=== PATIENT | female | born 1975 | race Caucasian/White ===

== ENCOUNTER 2020-02-27 06:38 | Day surgery (SDC) | payer OTHER ==
[2020-02-26 08:56] LABS: BLOOD UREA NITROGEN,BUN 8 mg/dL (7.0-18.0); CARBON DIOXIDE,CO2 27.6 mmol/L (21.0-32.0); CHLORIDE,CL 103 mmol/L (98-107); GLUCOSE RANDOM 138 mg/dL (74-106); POTASSIUM,K 3.9 mmol/L (3.5-5.1); SODIUM,NA 138 mmol/L (136-145)
[2020-02-27] MEDS ORDERED: Lidocaine 2% 5 ML SDV ONE (07:05)
[2020-02-27] MEDS ORDERED: Rocuronium 100 MG/10 ML Syringe ONE ×2 (07:05→10:04)
[2020-02-27] MEDS ORDERED: Propofol 200 MG/20 ML SDV ONE ×4 (07:05→12:22)
[2020-02-27] MEDS ORDERED: Ondansetron 4 MG/2 ML SDV ONE (07:05)
[2020-02-27] MEDS ORDERED: fentaNYL 250 MCG/5 ML SDV ONE (07:05)
[2020-02-27] MEDS ORDERED: Midazolam 1 MG/ML 2 ML SDV ONE (07:06)
[2020-02-27] MEDS ORDERED: Ketorolac 30 MG/ML SDV ONE (07:06)
[2020-02-27] MEDS ORDERED: Ketamine 500 mg/10 ML MDV ONE (07:07)
[2020-02-27] MEDS ORDERED: Scopolamine 1.5 MG Transdermal Patch TOP ONE (07:23)
[2020-02-27] MEDS ORDERED: Vasopressin 20 Units/1 ML MDV ONE (07:32)
[2020-02-27] MEDS ORDERED: Methylene Blue 50 MG/10 ML Ampule ONE (07:32)
[2020-02-27] MEDS ORDERED: Bupivacaine 0.25% 10 ML SDV ONE (07:32)
[2020-02-27] MEDS ORDERED: Fluorescein 5 ML Vial ONE (07:32)
[2020-02-27] MEDS: Lactated Ringers 1,000 ML IV SCH ×2 (07:34→14:26)
--- NOTE | 2020-02-27 07:35 | PCM.PREANE ---
Preanesthetic Assessment - Anesthesia/Transfusion/Family Hx Anesthesia History: Prior Anesthesia Without Reaction Family History of Anesthesia Reaction: No Transfusion History: No Prior Transfusion(s) - Review of Systems General: No Symptoms Pulmonary: No Symptoms Cardiovascular: No Symptoms Gastrointestinal: No Symptoms Neurological: No Symptoms Other: Reports: None - Physical Assessment NPO Status Date: 02/26/20 Vital Signs: Last Vital Signs Temp 97.2 F 02/27/20 06:45 Pulse 77 02/27/20 06:45 Resp 18 02/27/20 06:45 BP 158/70 H 02/27/20 06:45 Pulse Ox 98 02/27/20 06:45 Height: 5 ft 4 in Weight: 95.254 kg ASA Class: 2 Mental Status: Alert & Oriented x3 Airway Class: Mallampati = 2 Dentition: Reports: Normal Dentition ROM/Head Extension: Full Lungs: Clear to Auscultation, Normal Respiratory Effort Cardiovascular: Regular Rate, Regular Rhythm - Lab Values: Laboratory Last Values WBC 8.67 K/uL (4.0-11.0) 02/26/20 08:21 RBC 4.85 M/uL (4.30-5.90) 02/26/20 08:21 Hgb 13.2 g/dL (12.0-16.0) 02/26/20 08:21 Hct 40.6 % (36.0-46.0) 02/26/20 08:21 MCV 83.7 fL (80.0-98.0) 02/26/20 08:21 MCH 27.2 pg (27.0-32.0) 02/26/20 08:21 MCHC 32.5 g/dL (31.0-37.0) 02/26/20 08:21 RDW Std Deviation 45.9 fl (28.0-62.0) 02/26/20 08:21 RDW Coeff of Wilder 15 % (11.0-15.0) 02/26/20 08:21 Plt Count 317 K/uL (150-400) 02/26/20 08:21 MPV 9.40 fL (7.40-12.00) 02/26/20 08:21 Nucleated RBC % 0.0 /100WBC 02/26/20 08:21 Nucleated RBCs # 0 K/uL 02/26/20 08:21 Sodium 138 mmol/L (136-145) 02/26/20 08:21 Potassium 3.9 mmol/L (3.5-5.1) 02/26/20 08:21 Chloride 103 mmol/L (98-107) 02/26/20 08:21 Carbon Dioxide 27.6 mmol/L (21.0-32.0) 02/26/20 08:21 BUN 8 mg/dL (7.0-18.0) 02/26/20 08:21 Creatinine 0.7 mg/dL (0.6-1.0) 02/26/20 08:21 Est Cr Clr Drug Dosing 86.72 mL/min 02/26/20 08:21 Estimated GFR (MDRD) > 60.0 ml/min 02/26/20 08:21 Glucose 138 mg/dL (74-106) H 02/26/20 08:21 Calcium 8.7 mg/dL (8.5-10.1) 02/26/20 08:21 HCG, Qual NEGATIVE (NEG) 02/26/20 08:21 SARS Virus RNA (PCR) NEGATIVE (NEGATIVE) 02/26/20 08:36 Blood Type O POSITIVE 02/26/20 08:26 Antibody Screen NEGATIVE 02/26/20 08:26 - Allergies Allergies/Adverse Reactions: Allergies Allergy/AdvReac Type Severity Reaction Status Date / Time MSG Allergy Facial Uncoded 02/23/20 08:57 Swelling - Blood Blood Available: No - Anesthesia Plan Pre-Op Medication Ordered: Other (trans derm scop ordered by surgeon) - Acknowledgements Anesthesia Type Planned: General Anesthesia Pt an Appropriate Candidate for the Planned Anesthesia: Yes Alternatives and Risks of Anesthesia Discussed w Pt/Guardian: Yes Pt/Guardian Understands and Agrees with Anesthesia Plan: Yes Additional Comments: PMH: [place] wearing hearing aids, migraine PLAN: get PreAnesthesia Questionnaire HEENT History: Reports: Other (See Below) Other HEENT History: wears glasses, hearing aids Cardiovascular History: Reports: Heart Murmur, Other (See Below) Other Cardiovascular History: mitral valve prolapse Respiratory History: Reports: None Gastrointestinal History: Reports: GERD Genitourinary History: Reports: None WINDOW TINTER History: Reports: Musculoskeletal History: Reports: Fracture Other Musculoskeletal History: bilateral wrists Neurological History: Reports: Migraines, Other (See Below) Other Neuro History: hx of motion sickness Psychiatric History: Reports: None Endocrine/Metabolic History: Reports: Obesity/BMI 30+ Hematologic History: Reports: Anemia Immunologic History: Reports: None Oncologic (Cancer) History: Reports: None Dermatologic History: Reports: None - Past Surgical History Head Surgeries/Procedures: Reports: None HEENT Surgical History: Reports: Oral Surgery Cardiovascular Surgical History: Reports: None Respiratory Surgical History: Reports: None GI Surgical History: Reports: Appendectomy Female Surgical History: Reports: Section, Tubal Ligation Endocrine Surgical History: Reports: None Neurological Surgical History: Reports: None Musculoskeletal Surgical History: Reports: Arthroscopic Knee, Other (See Below) Other Musculoskeletal Surgeries/Procedures:: tendon repair left wrist, rt knee arthroscopy Oncologic Surgical History: Reports: None Dermatological Surgical History: Reports: None - SUBSTANCE USE Smoking Status *Q: Never Smoker Recreational Drug Use History: No - HOME MEDS Home Medications: Home Meds Iron 65 mg PO DAILY 04/06/16 [History] Fluticasone Propionate [Flonase] 2 spray NASBOTH DAILY 02/23/20 [History] Omeprazole 20 mg PO DAILY 02/23/20 [History] - CURRENT (IN HOUSE) MEDS Current Meds: Current Medications Lactated Ringer's (Ringers, Lactated) 1,000 mls @ 100 mls/hr IV ASDIRECTED MAURICIO Discontinued Medications Fentanyl (Sublimaze) Confirm Administered Dose 250 mcg .ROUTE .STK-MED ONE Stop: 02/27/20 07:06 Ketamine HCl (Ketalar) Confirm Administered Dose 500 mg .ROUTE .STK-MED ONE Stop: 02/27/20 07:08 Ketorolac Tromethamine (Toradol) Confirm Administered Dose 30 mg .ROUTE .STK- MED ONE Stop: 02/27/20 07:07 Lidocaine (Xylocaine-Mpf 2%) Confirm Administered Dose 5 ml .ROUTE .STK-MED ONE Stop: 02/27/20 07:06 Midazolam HCl (Versed 1 Mg/Ml) Confirm Administered Dose 2 mg .ROUTE .STK-MED ONE Stop: 02/27/20 07:07 Ondansetron HCl (Zofran) Confirm Administered Dose 4 mg .ROUTE .STK-MED ONE Stop: 02/27/20 07:06 Propofol (Diprivan 20 Ml) Confirm Administered Dose 400 mg .ROUTE .STK-MED ONE Stop: 02/27/20 07:06 Rocuronium [place] (Zemuron) Confirm Administered Dose 100 mg .ROUTE .STK-MED ONE Stop: 02/27/20 07:06 Scopolamine (Transderm-Scop) 1.5 mg TOP ONETIME ONE Stop: 02/27/20 07:24
[2020-02-27] MEDS ORDERED: ceFAZolin 2 GM in Premix Bag 1 BAG IV ONE (07:43)
[2020-02-27] MEDS ORDERED: Sodium Chloride 0.9% 10 ML SDV IV PRN (07:43)
[2020-02-27] MEDS ORDERED: Sodium Chloride 0.9% 2.5 ML Syringe FLUSH PRN (07:43)
[2020-02-27] MEDS ORDERED: Sodium Chloride 0.9% 10 ML Syringe FLUSH PRN (07:43)
[2020-02-27] MEDS ORDERED: ceFAZolin/Dextrose,Iso-Osmotic 2 GM/50 ML Duplex Bag IV ONE (08:09)
[2020-02-27] MEDS ORDERED: ePHEDrine 50 MG/ML SDV ONE (08:45)
[2020-02-27] MEDS ORDERED: fentaNYL 100 MCG/2 ML SDV IVPUSH PRN (09:01)
[2020-02-27] MEDS ORDERED: Furosemide 40 MG/4 ML VIAL ONE (09:37)
[2020-02-27] MEDS ORDERED: fentaNYL 100 MCG/2 ML SDV ONE ×2 (09:43→10:32)
--- NOTE | 2020-02-27 13:10 | PCM.POSTAN ---
POST ANESTHESIA ASSESSMENT - MENTAL STATUS Mental Status: Alert, Oriented - VITAL SIGNS Vital Signs: Last Vital Signs Temp 97.6 F 02/27/20 12:55 Pulse 85 02/27/20 13:05 Resp 20 02/27/20 13:05 BP 111/59 L 02/27/20 13:05 Pulse Ox 100 02/27/20 13:05 - RESPIRATORY Respiratory Status: Respiratory Rate WNL, Airway Patent, O2 Saturation Stable - CARDIOVASCULAR CV Status: Pulse Rate WNL, Blood Pressure Stable - GASTROINTESTINAL GI Status: No Symptoms - POST OP HYDRATION Hydration Status: Adequate & Stable
[2020-02-27] MEDS ORDERED: Promethazine 25 MG/ML SDV IM PRN (13:14)
[2020-02-27] MEDS ORDERED: oxyCODONE 5 MG Tab PO PRN (13:14)
[2020-02-27] MEDS ORDERED: Ketorolac 30 MG/ML SDV IVPUSH ONE (13:14)
[2020-02-27] MEDS ORDERED: Morphine 4 MG/ML Syringe IVPUSH PRN (13:14)
[2020-02-27] MEDS ORDERED: Ketorolac 30 MG/ML SDV IVPUSH PRN (13:14)
[2020-02-27] MEDS ORDERED: Ondansetron 4 MG/2 ML SDV IVPUSH PRN (13:14)
--- NOTE | 2020-02-27 13:21 | PCM.OPNOTE ---
- General Post-Op/Procedure Note Date of Surgery/Procedure: 02/27/20 Operative Procedure(s): TLH/BS Findings: EUA shows 10 week sized uterus Dense adhesion of bladder to anterior uterine wall fallopian tube with filshie clip Minimal endometriotic deposits noted left ovarian fossa Pre Op Diagnosis: 44yo with P5 with Abnormal uterine bleeding Post-Op Diagnosis: Abnormal Uterine bleeding. Endometriotic deposit - minimal Anesthesia Technique: General ET Tube Primary Surgeon: Jayla Villalta Secondary Surgeon: Carri Delaney Pathology: Uterus , tube with fallope ring and Peritoneal cyst Fluid Replacement, Intraop: 2,700 Output, Urine Amount: 175 EBL in mLs: 100 Complications: None Condition: Good
[2020-02-27] MEDS: Metoclopramide 10 MG/2 ML SDV IVPUSH SCH ×2 (14:25→21:55)
[2020-02-27] MEDS: Acetaminophen 325 MG Tab PO SCH ×3 (14:51→23:18)
[2020-02-28] MEDS: Lactated Ringers 1,000 ML IV SCH (01:00)
[2020-02-28] MEDS: Acetaminophen 325 MG Tab PO SCH ×2 (03:07→06:54)
[2020-02-28 06:25] LABS: BLOOD UREA NITROGEN,BUN 10 mg/dL (7.0-18.0); CARBON DIOXIDE,CO2 26.6 mmol/L (21.0-32.0); CHLORIDE,CL 104 mmol/L (98-107); GLUCOSE RANDOM 117 mg/dL (74-106); POTASSIUM,K 4.2 mmol/L (3.5-5.1); SODIUM,NA 140 mmol/L (136-145)
[2020-02-28] MEDS: Metoclopramide 10 MG/2 ML SDV IVPUSH SCH (06:54)
--- NOTE | 2020-02-28 07:11 | PCM48HPAN ---
Post Anesthesia Note - EVALUATION WITHIN 48HRS OF ANESTHETIC Vital Signs in Normal Range: Yes Patient Participated in Evaluation: Yes Respiratory Function Stable: Yes Airway Patent: Yes Cardiovascular Function Stable: Yes Hydration Status Stable: Yes Pain Control Satisfactory: Yes Nausea and Vomiting Control Satisfactory: Yes Mental Status Recovered: Yes Vital Signs: Last Vital Signs Temp 37.4 C 02/28/20 03:08 Pulse 93 02/28/20 03:08 Resp 14 02/28/20 03:08 BP 125/55 L 02/28/20 03:08 Pulse Ox 95 02/28/20 03:08
[2020-02-28] MEDS ORDERED: ceFAZolin 2 GM in Premix Bag 1 BAG IV ONE (09:06)
--- NOTE | 2020-02-28 09:09 | PCM.SURGPN ---
- General Info Date of Service: 02/28/20 POD#: 1 Post-Op Diagnosis: AUB Functional Status: Reports: Pain Controlled, Tolerating Diet, Ambulating, Urinating - Review of Systems General: Reports: No Symptoms HEENT: Reports: No Symptoms Pulmonary: Reports: No Symptoms Cardiovascular: Reports: No Symptoms Gastrointestinal: Reports: No Symptoms Genitourinary: Reports: No Symptoms Musculoskeletal: Reports: No Symptoms Skin: Reports: No Symptoms Neurological: Reports: No Symptoms Psychiatric: Reports: No Symptoms - Patient Data Vitals - Most Recent: Last Vital Signs Temp 37.4 C 02/28/20 03:08 Pulse 93 02/28/20 03:08 Resp 14 02/28/20 03:08 BP 125/55 L 02/28/20 03:08 Pulse Ox 95 02/28/20 03:08 Weight - Most Recent: 95.254 kg I&O - Last 24 Hours: Intake & Output 02/27/20 02/28/20 02/28/20 22:59 06:59 14:59 Intake Total 2700 300 Output Total 675 1400 Balance 2024 -1099 Lab Results Last 24 Hrs: Laboratory Results - last 24 hr 02/28/20 02/28/20 Range/Units 05:50 05:50 WBC 17.03 H (4.0-11.0) K/uL RBC 4.14 L (4.30-5.90) M/uL Hgb 11.1 L (12.0-16.0) g/dL Hct 35.1 L (36.0-46.0) % MCV 84.8 (80.0-98.0) fL MCH 26.8 L (27.0-32.0) pg MCHC 31.6 (31.0-37.0) g/dL RDW Std Deviation 47.4 (28.0-62.0) fl RDW Coeff of Wilder 15 (11.0-15.0) % Plt Count 340 (150-400) K/uL MPV 9.70 (7.40-12.00) fL Neut % (Auto) 80.3 H (48.0-80.0) % Lymph % (Auto) 11.6 L (16.0-40.0) % Dent % (Auto) 7.9 (0.0-15.0) % Eos % (Auto) 0.1 (0.0-7.0) % Baso % (Auto) 0.1 (0.0-1.5) % Neut # (Auto) 13.7 H (1.4-5.7) K/uL Lymph # (Auto) 2.0 (0.6-2.4) K/uL Dent # (Auto) 1.3 H (0.0-0.8) K/uL Eos # (Auto) 0.0 (0.0-0.7) K/uL Baso # (Auto) 0.0 (0.0-0.1) K/uL Nucleated RBC % 0.0 /100WBC Nucleated RBCs # 0 K/uL Sodium 140 (136-145) mmol/L Potassium 4.2 (3.5-5.1) mmol/L Chloride 104 (98-107) mmol/L Carbon Dioxide 26.6 (21.0-32.0) mmol/L BUN 10 (7.0-18.0) mg/dL Creatinine 0.8 (0.6-1.0) mg/dL Est Cr Clr Drug Dosing 75.88 mL/min Estimated GFR (MDRD) > 60.0 ml/min Glucose 117 H (74-106) mg/dL Calcium 8.1 L (8.5-10.1) mg/dL Med Orders - Current: Current Medications Acetaminophen (Tylenol) 650 mg PO Q4H [facility] Last Admin: 02/28/20 06:54 Dose: 650 mg Lactated Ringer's (Ringers, Lactated) 1,000 mls @ 100 mls/hr IV ASDIRECTED [facility] Last Admin: 02/28/20 01:00 Dose: 100 mls/hr Ketorolac Tromethamine (Toradol) 30 mg IVPUSH Q6H PRN PRN Reason: Pain (severe 7-10) Stop: 03/03/20 13:14 Last Admin: 02/27/20 23:19 Dose: 30 mg Metoclopramide HCl (Reglan) 10 mg IVPUSH Q8H [facility] Last Admin: 02/28/20 06:54 Dose: 10 mg Morphine Sulfate (Morphine) 4 mg IVPUSH Q2H PRN PRN Reason: Pain (severe 7-10) Last Admin: 02/27/20 15:01 Dose: 4 mg Ondansetron HCl (Zofran) 4 mg IVPUSH Q6H PRN PRN Reason: Nausea/Vomiting Oxycodone HCl (Oxycodone) 5 mg PO Q4H PRN PRN Reason: Pain (moderate 4-6) Last Admin: 02/27/20 17:06 Dose: 5 mg Promethazine HCl (Phenergan) 25 mg IM Q6H PRN PRN Reason: Nausea/Vomiting Sodium Chloride (Saline Flush) 2.5 ml FLUSH ASDIRECTED PRN PRN Reason: Keep Vein Open Discontinued Medications Bupivacaine HCl (Sensorcaine-Mpf 0.25%) Confirm Administered Dose 20 ml .ROUTE .STK-MED ONE Stop: 02/27/20 07:33 Cefazolin Sodium/Dextrose (Ancef) Confirm Administered Dose 2 gm IV .STK-MED ONE Stop: 02/27/20 08:10 Ephedrine Sulfate (Ephedrine Sulfate) Confirm Administered Dose 50 mg .ROUTE .STK-MED ONE Stop: 02/27/20 08:46 Fentanyl (Sublimaze) Confirm Administered Dose 250 mcg .ROUTE .STK-MED ONE Stop: 02/27/20 07:06 Fentanyl (Sublimaze) 50 mcg IVPUSH Q5M PRN PRN Reason: Pain (severe 7-10) Stop: 02/28/20 09:02 Fentanyl (Sublimaze) Confirm Administered Dose 100 mcg .ROUTE .STK-MED ONE Stop: 02/27/20 09:44 Fentanyl (Sublimaze) Confirm Administered Dose 100 mcg .ROUTE .STK-MED ONE Stop: 02/27/20 10:33 Fluorescein Sodium (Ak-Fluor) Confirm Administered Dose 5 ml .ROUTE .STK-MED ONE Stop: 02/27/20 07:33 Furosemide (Lasix) Confirm Administered Dose 40 mg .ROUTE .STK-MED ONE Stop: 02/27/20 09:38 Cefazolin Sodium/Dextrose 2 gm (/ Premix) 50 mls @ 100 mls/hr IV ONETIME ONE Stop: 02/27/20 08:12 Last Admin: 02/27/20 19:56 Dose: Not Given Ketamine HCl (Ketalar) Confirm Administered Dose 500 mg .ROUTE .STK-MED ONE Stop: 02/27/20 07:08 Ketorolac Tromethamine (Toradol) Confirm Administered Dose 30 mg .ROUTE .STK- MED ONE Stop: 02/27/20 07:07 Ketorolac Tromethamine (Toradol) 30 mg IVPUSH ONETIME ONE Stop: 02/27/20 13:15 Last Admin: 02/27/20 13:24 Dose: 30 mg Lidocaine (Xylocaine-Mpf 2%) Confirm Administered Dose 5 ml .ROUTE .STK-MED ONE Stop: 02/27/20 07:06 Methylene Blue (Provayblue) Confirm Administered Dose 50 mg .ROUTE .STK-MED ONE Stop: 02/27/20 07:33 Midazolam HCl (Versed 1 Mg/Ml) Confirm Administered Dose 2 mg .ROUTE .STK-MED ONE Stop: 02/27/20 07:07 Ondansetron HCl (Zofran) Confirm Administered Dose 4 mg .ROUTE .STK-MED ONE Stop: 02/27/20 07:06 Propofol (Diprivan 20 Ml) Confirm Administered Dose 400 mg .ROUTE .STK-MED ONE Stop: 02/27/20 07:06 Propofol (Diprivan 20 Ml) Confirm Administered Dose 200 mg .ROUTE .STK-MED ONE Stop: 02/27/20 09:25 Propofol (Diprivan 20 Ml) Confirm Administered Dose 200 mg .ROUTE .STK-MED ONE Stop: 02/27/20 10:32 Propofol (Diprivan 20 Ml) Confirm Administered Dose 200 mg .ROUTE .STK-MED ONE Stop: 02/27/20 12:23 Rocuronium [place] (Zemuron) Confirm Administered Dose 100 mg .ROUTE .STK-MED ONE Stop: 02/27/20 07:06 Rocuronium [place] (Zemuron) Confirm Administered Dose 100 mg .ROUTE .STK-MED ONE Stop: 02/27/20 10:05 Scopolamine (Transderm-Scop) 1.5 mg TOP ONETIME ONE Stop: 02/27/20 07:24 Last Admin: 02/27/20 07:35 Dose: 1.5 mg Sodium Chloride (Saline Flush) 10 ml FLUSH ASDIRECTED PRN PRN Reason: Keep Vein Open Sodium Chloride (Normal Saline) 10 ml IV ASDIRECTED PRN PRN Reason: IV Use Vasopressin (Vasopressin) Confirm Administered Dose 20 units .ROUTE .STK-MED ONE Stop: 02/27/20 07:33 - Exam Wound/Incisions: Healing Well General: Alert HEENT: Pupils Equal Neck: Supple Lungs: Clear to Auscultation, Normal Respiratory Effort Cardiovascular: Regular Rate, Regular Rhythm GI/Abdominal Exam: Normal Bowel Sounds Extremities: Normal Inspection Neurological: No New Focal Deficit Psy/Mental Status: Alert Sepsis Event Note - Evaluation Sepsis Screening Result: No Definite Risk - Focused Exam Vital Signs: Vital Signs Temp Pulse Resp BP Pulse Ox 02/28/20 03:08 37.4 C 93 14 125/55 L 95 02/27/20 23:21 37.6 C 100 14 118/58 L 92 L Date Exam was Performed: 02/28/20 Time Exam was Performed: 09:05 - Problem List & Annotations (1) S/P hysterectomy SNOMED Code(s): 957017950, 687143176, 066393431 Code(s): Z90.710 - ACQUIRED ABSENCE OF BOTH CERVIX AND UTERUS Status: Acute Current Visit: Yes - Problem List Review Problem List Initiated/Reviewed/Updated: Yes - My Orders Last 24 Hours: Active Orders 24 hr Category Date Time Status Patient Status [ADT] Routine ADT 02/27/20 13:14 Active Antiembolic Devices [RC] PER UNIT ROUTINE Care 02/27/20 13:14 Active Notify Provider Intake and Out [RC] ASDIRECTED Care 02/27/20 13:14 Active Notify Provider Vital Signs [RC] ASDIRECTED Care 02/27/20 13:14 Active Oxygen Therapy [RC] ASDIRECTED Care 02/27/20 13:14 Active RT Incentive Spirometry [RC] Q2HWA Care 02/27/20 13:14 Active Up With Assistance [RC] PER UNIT ROUTINE Care 02/27/20 13:14 Active Up ad Adriana [RC] PER UNIT ROUTINE Care 02/27/20 13:14 Active Vital Signs [RC] PER UNIT ROUTINE Care 02/27/20 13:14 Active Regular Diet [DIET] Diet 02/27/20 Dinner Active Acetaminophen [Tylenol] Med 02/27/20 15:00 Active 650 mg PO Q4H Ketorolac [Toradol] Med 02/27/20 13:14 Active 30 mg IVPUSH Q6H PRN Metoclopramide [Reglan] Med 02/27/20 13:30 Active 10 mg IVPUSH Q8H Morphine Med 02/27/20 13:14 Active 4 mg IVPUSH Q2H PRN Ondansetron [Zofran] Med 02/27/20 13:14 Active 4 mg IVPUSH Q6H PRN Promethazine [Phenergan] Med 02/27/20 13:14 Active 25 mg IM Q6H PRN oxyCODONE Med 02/27/20 13:14 Active 5 mg PO Q4H PRN Peripheral IV Discontinue [OM.PC] Routine Oth 02/27/20 13:14 Ordered Sequential Compression Device [OM.PC] Per Unit Routine Oth 02/27/20 13:14 Ordered Resuscitation Status Routine Resus Stat 02/27/20 13:14 Ordered Medication Orders Acetaminophen (Tylenol) 650 mg PO Q4H [facility] Last Admin: 02/28/20 06:54 Dose: 650 mg Admin: 02/28/20 03:07 Dose: 650 mg Admin: 02/27/20 23:18 Dose: 650 mg Admin: 02/27/20 18:27 Dose: 650 mg Admin: 02/27/20 14:51 Dose: 650 mg Lactated Ringer's (Ringers, Lactated) 1,000 mls @ 100 mls/hr IV ASDIRECTED [facility] Last Admin: 02/28/20 01:00 Dose: 100 mls/hr Infusion: 02/28/20 00:26 Dose: 100 mls/hr Admin: 02/27/20 14:26 Dose: 100 mls/hr Infusion: 02/27/20 14:26 Dose: 100 mls/hr Admin: 02/27/20 07:34 Dose: 100 mls/hr Ketorolac Tromethamine (Toradol) 30 mg IVPUSH Q6H PRN PRN Reason: Pain (severe 7-10) Stop: 03/03/20 13:14 Last Admin: 02/27/20 23:19 Dose: 30 mg Metoclopramide HCl (Reglan) 10 mg IVPUSH Q8H [facility] Last Admin: 02/28/20 06:54 Dose: 10 mg Admin: 02/27/20 21:55 Dose: 10 mg Admin: 02/27/20 14:25 Dose: 10 mg Morphine Sulfate (Morphine) 4 mg IVPUSH Q2H PRN PRN Reason: Pain (severe 7-10) Last Admin: 02/27/20 15:01 Dose: 4 mg Ondansetron HCl (Zofran) 4 mg IVPUSH Q6H PRN PRN Reason: Nausea/Vomiting Oxycodone HCl (Oxycodone) 5 mg PO Q4H PRN PRN Reason: Pain (moderate 4-6) Last Admin: 02/27/20 17:06 Dose: 5 mg Promethazine HCl (Phenergan) 25 mg IM Q6H PRN PRN Reason: Nausea/Vomiting Sodium Chloride (Saline Flush) 2.5 ml FLUSH ASDIRECTED PRN PRN Reason: Keep Vein Open - Assessment Assessment (Free Text/Narrative):: 44yo s/p TLH/BS for AUB She has good pain control denies any complains Voiding , tolerating regular diet She has met all post op goals - Plan Plan (Free Text/Narrative):: Discharge home Post op precautions
[2020-02-28 09:55] VITALS: BP 119/52; PULSE 74
--- NOTE | 2020-03-01 08:13 | OR ---
SURGEON: YOANDY PARKER DATE OF PROCEDURE: 02/27/2020 PREOPERATIVE DIAGNOSIS: Abnormal uterine bleeding. POSTOPERATIVE DIAGNOSIS: Abnormal uterine bleeding. PROCEDURES: Total laparoscopic hysterectomy, bilateral salpingectomy Cytoscopy ESTIMATED BLOOD LOSS: 100 mL. IV FLUIDS: 2700. URINE OUTPUT: 175. PATHOLOGY: Uterus, tubes, and peritoneal cyst. COMPLICATION: None. PROCEDURES: Total laparoscopic hysterectomy, bilateral salpingectomy, cystoscopy, removal of peritoneal cyst, and lysis of adhesions. FINDINGS: Normal sized anteverted uterus , very dense bladder adhesions to the anterior vaginal wall Normal tube and ovaries . Cystoscopy showed intact bladder and bilateral ureteral jets. BRIEF HISTORY: She is a 44-year-old, previous x3, and x2, was seen for abnormal uterine bleeding. She had ultrasound done which showed a normal-sized uterus. Biopsy showed a normal endometrium, negative benign proliferative endometrium. The patient declined conservative management, and she desired definitive management with hysterectomy. She was explained the risks, benefits, and alternatives, and she decided to proceed. DESCRIPTION OF PROCEDURE: The patient was taken to the operating room where general anesthesia was performed without difficulty. She was prepared and draped in the dorsolithotomy position with Lakhwinder stirrups. A Beltran catheter was placed. The speculum was used to expose the cervix. The anterior lip of cervix was grasped and the cervix was sized with 3.5 Advincula asp net developer. The cervix was dilated to accommodate the Advincula asp net developer. Uterus was sounded to about 10 cm. The Advincula was placed without difficulty. Attention was turned to the abdomen. A supraumbilical incision was made 5 mm after injection of 0.25% Marcaine. The abdomen was entered via direct entry. Entry was confirmed with low intraabdominal pressure of 5 mmHg. CO2 pneumoperitoneum was obtained to 15 mmHg. The patient was placed in Trendelenburg position. The right and the left lower quadrant ports were placed 2 fingerbreadths superior and medial to the anterior and superior iliac spine. One of the ureters was observed that was on the right side. The colon was retracted out of the posterior cul-de-sac. The right tube was grasped by the physical therapy assistant instructor, and with the aid of the LigaSure device, this was sequentially coagulated and cut to separate it from the ovary and pelvic peritoneum and ligament. However, the patient had then severely dense bladder adhesions to the anterior uterus, which with the aid of hydrodissection and careful dissection and fine dissection through the retroperitoneum, the bladder was off the lower uterine segment. Also, the left tube was all the way to the cornua of the uterus, and the ovarian ligament was detached from the body of the uterus on the right and on the left side. After careful dissection of the bladder off of the lower uterine segment, the uterine vessels were then coagulated, cut on both sides. Then, a circumferential incision was made with Harmonic around the cup. The uterus was removed from the vagina. Then, Stratafix 0 suture was passed through the vagina and was then used to close the cup in 2 layers, incorporating the uterosacral ligament. After closing the cup, it was checked to be intact, to make sure there was no defect in the suture line, which was confirmed. The cuff was then inspected with irrigation. No bleeding was noted. Then, under low pressure was also inspected again, no bleeding was noted. Then, the trocars were removed. The needle was removed from one of the ports without any difficulty, the trocars were removed without any difficulty, and the incision was closed with 4-0 Monocryl. The cystoscopy was also performed, after fluorescein was injected. The bladder was noted to be intact . The bilateral ureteral jets were noted. The patient tolerated the procedure well and was taken to recovery room in stable condition. PETER HRERON /[id number] ENRIQUE
== END 2020-02-28 10:55 | disposition home or self-care (01) ==
LOC: MW.SDS 06:38 → MW.MS 13:20 → MW.SDS 02-28 10:55
PROVIDERS: ATTEND Obstetrics & Gynecology
DX: D25.1 Intramural leiomyoma of uterus (principal); I05.9 Rheumatic mitral valve disease, unspecified; N88.8 Other specified noninflammatory disorders of cervix uteri; N73.6 Female pelvic peritoneal adhesions (postinfective); K66.8 Other specified disorders of peritoneum; E66.9 Obesity, unspecified; K21.9 Gastro-esophageal reflux disease without esophagitis; Z68.36 Body mass index [BMI] 36.0-36.9, adult; Z01.812 Encounter for preprocedural laboratory examination; Z20.828 Contact with and (suspected) exposure to other viral communicable diseases
CPT/HCPCS: 36415; 58571; 80048; 84703; 85025; 85027; 86850; 86900; 86901; 87635; 88305; 88307; A9270; J0690; J1885; J1940; J2001; J2250; J2270; J2405; J2704; J2765; J3010; J3490; J7120; 00840; U0002